=== PATIENT | male | born 1975 | race African-American/Black ===

== ENCOUNTER 2025-03-28 13:16 | Emergency (ER) | payer MEDICAID ==
[~2025-03-28] VITALS: Ht 180.3 cm; Wt 87.0 kg
[2025-03-28 13:19] VITALS: BP 150/87; PULSE 100; RESP 16; TEMP 36.9; O2SAT 99
[2025-03-28] MEDS: DICYCLOMINE HCL 10MG CAPSULE PO SCH (13:52)
[2025-03-28] MEDS: MAGNESIUM/ALUMINUM HYDROXIDE/SIMETHICONE 30ML UDC PO STA (13:52)
[2025-03-28] MEDS: FAMOTIDINE 20MG TABLET PO ONE (13:52)
[2025-03-28] MEDS: ONDANSETRON 4MG ODT PO STA (13:53)
[2025-03-28] MEDS: DICYCLOMINE 10 MG/5 ML ORAL SYR PO STA (13:54)
[2025-03-28 14:12] LABS: BASOPHILS % 0.7 % (0.0-2.0); EOSINOPHILS % 0.1 % (0.0-5.0); HEMATOCRIT. 31.2 % (42.0-52.0); HEMOGLOBIN. 10.5 g/dL (14.0-18.0); LYMPHOCYTES % 26.4 % (20.0-50.0); MEAN CORPUSCULAR HEMOGLOBIN 31.1 pg (28.0-32.0); MEAN CORPUSCULAR HGB CONC 33.7 g/dL (31.0-37.0); MEAN CORPUSCULAR VOLUME 92.4 fL (80.0-94.0); MEAN PLATELET VOLUME 8.1 fl (7.4-10.4); NEUTROPHILS % 67.8 % (40.0-76.0); PLATELET 124 x1000/uL (130-400); RED BLOOD CELL COUNT 3.38 mill/uL (4.7-6.1); RED CELL DISTRIBUTION WIDTH 16.8 % (11.6-14.6); WHITE BLOOD COUNT 4.8 x1000/uL (4.5-11.0)
[2025-03-28 14:15] LABS: CHLORIDE 108 mEq/L (98-107); POTASSIUM 2.9 mEq/L (3.5-5.1); SODIUM 144 mEq/L (136-145)
[2025-03-28 14:16] LABS: CALCIUM 9.3 mg/dL (8.7-10.4); CARBON DIOXIDE 26 mEq/L (21-32)
[2025-03-28 14:21] LABS: CREATININE 0.8 mg/dL (0.6-1.3); GLUCOSE 108 mg/dL (70-105)
[2025-03-28 14:22] LABS: ETHANOL BLOOD 95 mg/dL (<10); UREA NITROGEN BLOOD 9 mg/dL (9-23)
[2025-03-28 14:23] LABS: ALANINE AMINOTRANSFERASE 55 IU/L (10-49); ALBUMIN 4.8 g/dL (3.2-4.8); ASPARTATE AMINOTRANSFERASE 105 IU/L (<34); BILIRUBIN DIRECT 0.1 mg/dL (<=3.0)
[2025-03-28 14:24] LABS: BILIRUBIN TOTAL 0.5 mg/dL (0.1-1.0); PROTEIN TOTAL 7.2 g/dL (6.0-8.3)
[2025-03-28] MEDS ORDERED: FAMO-135 MT (14:42)
[2025-03-28] MEDS: POTASSIUM CHLORIDE 20MEQ TABLET SR PO ONE (14:54)
== END 2025-03-28 15:52 | disposition home or self-care (01) ==
LOC: ER 13:16
DX: K29.20 Alcoholic gastritis without bleeding (principal); E87.6 Hypokalemia; Z79.899 Other long term (current) drug therapy
CPT/HCPCS: 80076; 80048; 80320; 83690; 85025; 36415; 99284; Q0162; G0480

== ENCOUNTER 2025-03-28 15:42 | Inpatient (IN) | payer OTHER ==
[~2025-03-28] VITALS: Ht 180.3 cm; Wt 88.1 kg
[~2025-03-28 15:42] MED LIST: FAMO-135 MT
[2025-03-28] MEDS ORDERED: LORAZEPAM 2MG/ML INJ IV ONE (18:00)
[2025-03-28] MEDS: SODIUM CHLORIDE 0.9% 1,000 ML IV ONE ×2 (18:02→19:06)
[2025-03-28] MEDS: LORAZEPAM 2MG/ML UD SYRINGE IV ONE (18:02)
[2025-03-28 18:26] LABS: BASOPHILS % 0.8 % (0.0-2.0); HEMATOCRIT. 32.4 % (42.0-52.0); HEMOGLOBIN. 10.1 g/dL (14.0-18.0); LYMPHOCYTES % 27.2 % (20.0-50.0); MEAN CORPUSCULAR HEMOGLOBIN 30.6 pg (28.0-32.0); MEAN CORPUSCULAR VOLUME 98.8 fL (80.0-94.0); MEAN PLATELET VOLUME 8.2 fl (7.4-10.4); MONOCYTES % 4.6 % (2.0-8.0); NEUTROPHILS % 67.4 % (40.0-76.0); PLATELET 130 x1000/uL (130-400); RED BLOOD CELL COUNT 3.28 mill/uL (4.7-6.1); RED CELL DISTRIBUTION WIDTH 17.6 % (11.6-14.6); WHITE BLOOD COUNT 7.2 x1000/uL (4.5-11.0)
[2025-03-28 18:33] LABS: CHLORIDE 103 mEq/L (98-107); POTASSIUM 3.2 mEq/L (3.5-5.1); SODIUM 145 mEq/L (136-145)
[2025-03-28 18:34] LABS: CALCIUM 8.9 mg/dL (8.7-10.4)
[2025-03-28 18:38] LABS: CREATININE 0.9 mg/dL (0.6-1.3)
[2025-03-28 18:39] LABS: ETHANOL BLOOD 20 mg/dL (<10); GLUCOSE 133 mg/dL (70-105); PROTHROMBIN TIME 10.6 sec (9.6-11.0); UREA NITROGEN BLOOD 10 mg/dL (9-23)
[2025-03-28 18:41] LABS: ALANINE AMINOTRANSFERASE 53 IU/L (10-49); ALBUMIN 4.7 g/dL (3.2-4.8); ASPARTATE AMINOTRANSFERASE 97 IU/L (<34); BILIRUBIN DIRECT 0.1 mg/dL (<=3.0); BILIRUBIN TOTAL 0.4 mg/dL (0.1-1.0); PHOSPHORUS 4.5 mg/dL (2.5-4.9); PROTEIN TOTAL 7.1 g/dL (6.0-8.3)
[2025-03-28 18:58] LABS: CARBON DIOXIDE < 10 mEq/L (21-32)
[2025-03-28 20:00] VITALS: BP 155/83; PULSE 92; RESP 20; TEMP 36.9; O2SAT 100
[2025-03-28] MEDS: FOLIC ACID 1 MG, THIAMINE HCL 100 MG, MVI, ADULT NO.1 10 ML in DEXTROSE 5% WATER 1,000 ML IV ONE (20:24)
[2025-03-28 21:21] VITALS: BP_SYST 155; BP_DIAS 83; BP_DIAS 85; PULSE 91; RESP 18; TEMP 36.9; TEMP 37; O2SAT 100
[2025-03-29] VITALS: BP 167/92; PULSE 100; RESP 20; TEMP 36.8; O2SAT 99
[2025-03-29 04:00] VITALS: BP 145/98; PULSE 20; RESP 20; TEMP 36.8; O2SAT 100
[2025-03-29] MEDS: ONDANSETRON HCL 4MG/2ML INJ IV PRN (05:08)
[2025-03-29] MEDS: HYDROCODONE/ACETAMINOPHEN 10/325MG TABLET PO PRN (05:10)
[2025-03-29] MEDS ORDERED: NALOXONE HCL 0.4MG/ML VIAL IV PRN (05:15)
[2025-03-29 08:00] VITALS: BP 143/98; PULSE 76; RESP 19; TEMP 36.6; O2SAT 98
[2025-03-29] MEDS: AMLODIPINE 10MG TABLET PO SCH (08:17)
[2025-03-29] MEDS: ASPIRIN 81MG TABLET PO SCH (08:17)
[2025-03-29] MEDS: PANTOPRAZOLE SODIUM 40 MG/VIAL IV SCH (08:18)
[2025-03-29 10:17] LABS: CLARITY URINE CLEAR (CLEAR); COLOR URINE YELLOW (YELLOW); GLUCOSE URINE NEGATIVE (NEGATIVE); KETONES URINE 1+ (NEGATIVE); LEUKOCYTE ESTERASE URINE NEGATIVE (NEGATIVE); NITRITE URINE NEGATIVE (NEGATIVE); OCCULT BLOOD URINE NEGATIVE (NEGATIVE); PH URINE 7.5 (4.5-8.0); PROTEIN URINE NEGATIVE (NEGATIVE); SPECIFIC GRAVITY URINE 1.014 (1.005-1.030); UROBILINOGEN URINE 0.2 E.U./dL (0.2-1.0)
[2025-03-29 11:38] LABS: *AMPHETAMINES SCREEN URINE NEGATIVE (NEGATIVE); *BARBITURATES SCREEN URINE NEGATIVE (NEGATIVE); *BENZODIAZEPINES SCREEN URINE NEGATIVE (NEGATIVE); *COCAINE SCREEN URINE NEGATIVE (NEGATIVE); CANNABINOID URINE SCREEN NEGATIVE (NEGATIVE); ECSTASY MDMA SCREEN URINE NEGATIVE (NEGATIVE); METHADONE URINE SCREEN NEGATIVE (NEGATIVE); OPIATES URINE SCREEN PRESUMPTIVE POSITIVE (NEGATIVE); PHENCYCLIDINE URINE SCREEN NEGATIVE (NEGATIVE)
[2025-03-29 12:20] VITALS: BP 148/88; PULSE 73; RESP 19; TEMP 36.2; O2SAT 100
[2025-03-29] MEDS: POTASSIUM CHLORIDE 20MEQ TABLET SR PO SCH ×2 (14:31→18:01)
[2025-03-29] MEDS: DEXT 5%/0.45% NACL 1000ML 1,000 ML IV SCH (14:32)
[2025-03-29 15:57] VITALS: BP 149/90; PULSE 63; RESP 19; TEMP 36.3; O2SAT 99
[2025-03-29 17:04] LABS: CHLORIDE 99 mEq/L (98-107); SODIUM 139 mEq/L (136-145)
[2025-03-29 17:05] LABS: CARBON DIOXIDE 28 mEq/L (21-32)
[2025-03-29 17:11] LABS: CREATININE 0.7 mg/dL (0.6-1.3); GLUCOSE 91 mg/dL (70-105); UREA NITROGEN BLOOD 5 mg/dL (9-23)
[2025-03-29 17:46] LABS: POTASSIUM 2.7 mEq/L (3.5-5.1)
[2025-03-29] MEDS ORDERED: LORAZEPAM 2MG/ML UD SYRINGE IV PRN (19:15)
[2025-03-29 20:00] VITALS: BP 157/93; PULSE 70; RESP 20; TEMP 36.2; O2SAT 100
[2025-03-29] MEDS: METOCLOPRAMIDE HCL 10MG/2ML VIAL IV PRN (20:29)
[2025-03-29] MEDS: MAGNESIUM 2 G PREMIX 50 ML IV SCH (23:50)
[2025-03-30] VITALS: BP 130/76; PULSE 87; RESP 20; TEMP 36.5; O2SAT 97
[2025-03-30 04:00] VITALS: BP 125/86; PULSE 80; RESP 20; TEMP 36.3; O2SAT 97
[2025-03-30 07:08] LABS: CARBON DIOXIDE 25 mEq/L (21-32); CHLORIDE 102 mEq/L (98-107); SODIUM 139 mEq/L (136-145)
[2025-03-30 07:10] LABS: CALCIUM 8.9 mg/dL (8.7-10.4)
[2025-03-30 07:13] LABS: CREATININE 0.7 mg/dL (0.6-1.3)
[2025-03-30 07:14] LABS: GLUCOSE 98 mg/dL (70-105); UREA NITROGEN BLOOD < 5 mg/dL (9-23)
[2025-03-30 07:49] VITALS: BP 128/80; PULSE 82; RESP 18; TEMP 36.7; O2SAT 100
[2025-03-30] MEDS: POTASSIUM CHLORIDE 20MEQ/PACKET PO SCH (09:20)
[2025-03-30 11:34] VITALS: BP 120/77; PULSE 73; RESP 18; TEMP 37.1; O2SAT 100
[2025-03-30 15:39] VITALS: BP 112/67; PULSE 86; RESP 18; TEMP 36.8; O2SAT 100
[2025-03-30 20:00] VITALS: BP 118/68; PULSE 85; RESP 20; TEMP 36.8; O2SAT 98
[2025-03-31] VITALS: BP 133/85; PULSE 83; RESP 20; TEMP 36.7; O2SAT 100
[2025-03-31 04:00] VITALS: BP 134/69; PULSE 78; RESP 20; TEMP 36.6; O2SAT 100
[2025-03-31 07:31] VITALS: BP 134/69; PULSE 78; TEMP 96.6; O2SAT 100
[2025-03-31 08:00] VITALS: BP 118/69; PULSE 74; RESP 20; TEMP 36.4; O2SAT 98
== END 2025-03-31 12:03 | disposition home or self-care (01) | DRG 53 ==
LOC: ER 15:42 → EDBEDREQ 20:11 → EDBEDREQTM 20:11 → ENRESERV 20:41 → 7WST 22:40
PROVIDERS: ADMIT Internal Medicine; ATTEND Internal Medicine
DX: G40.89 Other seizures (principal); D64.9 Anemia, unspecified; E87.6 Hypokalemia; F10.139 Alcohol abuse with withdrawal, unspecified; Y90.9 Presence of alcohol in blood, level not specified; I10 Essential (primary) hypertension; Z88.2 Allergy status to sulfonamides
CPT/HCPCS: 36415; 71045; 74018; 80048; 80076; 80305; 80320; 81003; 82962; 83735; 84100; 85025; 96361; 96365; 96375; 99291; J2060; J2405; J2470; J2765; J3411; J3475; J3490; J7030; J7070; G0480

== ENCOUNTER 2025-06-12 10:52 | Inpatient (IN) | payer OTHER ==
[~2025-06-12] VITALS: Ht 182.9 cm; Wt 79.8 kg
[2025-06-12 10:55] VITALS: O2SAT 97
[2025-06-12 11:38] LABS: BASOPHILS % 0.6 % (0.0-2.0); EOSINOPHILS % 0.2 % (0.0-5.0); HEMATOCRIT. 35.6 % (42.0-52.0); HEMOGLOBIN. 11.6 g/dL (14.0-18.0); LYMPHOCYTES % 24.2 % (20.0-50.0); MEAN PLATELET VOLUME 8.3 fl (7.4-10.4); MONOCYTES % 4.1 % (2.0-8.0); NEUTROPHILS % 70.9 % (40.0-76.0); PLATELET 192 x1000/uL (130-400); RED BLOOD CELL COUNT 3.80 mill/uL (4.7-6.1); RED CELL DISTRIBUTION WIDTH 15.7 % (11.6-14.6)
[2025-06-12] MEDS: DIAZEPAM 5 MG/ML 2ML SYR IV ONE (11:42)
[2025-06-12] MEDS: ONDANSETRON HCL 4MG/2ML INJ IV ONE (11:42)
[2025-06-12] MEDS: LACTATED RINGERS 1,000 ML IV SCH ×2 (11:43→15:41)
[2025-06-12] MEDS: LEVETIRACETAM 500MG PREMIX 100 ML IV ONE ×2 (11:43→11:55)
[2025-06-12 11:56] LABS: CREATININE 1.0 mg/dL (0.6-1.3); UREA NITROGEN BLOOD 9 mg/dL (9-23)
[2025-06-12 11:58] LABS: ASPARTATE AMINOTRANSFERASE 299 IU/L (<34); BILIRUBIN TOTAL 0.5 mg/dL (0.1-1.0); PROTEIN TOTAL 7.1 g/dL (6.0-8.3)
[2025-06-12] MEDS: TETANUS, DIPHTHERIA, PERTUSSIS VAC/PF 0.5ML (>10YR OLD) IM ONE (13:02)
[2025-06-12] MEDS ORDERED: MAGNESIUM/ALUMINUM HYDROXIDE/SIMETHICONE 30ML UDC PO PRN (15:15)
[2025-06-12] MEDS ORDERED: CLONIDINE 0.1MG TABLET PO PRN (15:15)
[2025-06-12] MEDS ORDERED: LORAZEPAM 1MG TABLET PO PRN (15:15)
[2025-06-12] MEDS ORDERED: IPRATROPIUM/ALBUTEROL 0.5-3(2.5)MG/3ML NEB HHN PRN (15:15)
[2025-06-12] MEDS ORDERED: GUAIFENESIN 200MG/10ML SUGAR FREE UDC PO PRN (15:15)
[2025-06-12] MEDS ORDERED: ACETAMINOPHEN 325MG TABLET PO PRN (15:15)
[2025-06-12] MEDS ORDERED: ONDANSETRON HCL 4MG/2ML INJ IV PRN (15:15)
[2025-06-12] MEDS ORDERED: DOCUSATE SODIUM 100MG CAPSULE PO PRN (15:15)
[2025-06-12] MEDS ORDERED: LORAZEPAM 2MG/ML UD SYRINGE IV PRN (15:15)
[2025-06-12] MEDS: CLONIDINE 0.1MG TABLET PO NR (15:19)
[2025-06-12] MEDS: CHLORDIAZEPOXIDE 25MG CAPSULE PO SCH (15:41)
[2025-06-12] MEDS: POTASSIUM CHLORIDE 20MEQ TABLET SR PO SCH (15:41)
[2025-06-12] MEDS: PANTOPRAZOLE SODIUM 40 MG/VIAL IV SCH (16:06)
[2025-06-12 16:12] LABS: PHOSPHORUS 3.0 mg/dL (2.5-4.9)
[2025-06-12] MEDS: MVI, ADULT NO.1 10 ML, FOLIC ACID 1 MG, THIAMINE HCL 100 MG in SODIUM CHLORIDE 0.9% 1,0... IV SCH (17:45)
[2025-06-12 18:13] LABS: INR 1.0
[2025-06-12] MEDS: ENOXAPARIN 40MG/0.4ML SYR SUBCUT SCH (20:32)
[2025-06-12 23:03] VITALS: BP 150/108; PULSE 98; RESP 13; TEMP 37.1408
[2025-06-13] VITALS (10 sets, daily range): BP systolic 114–145; BP diastolic 78–99; PULSE 71–99; RESP 0–15; TEMP 36.4–37.3; O2SAT 95–100
[2025-06-13] MEDS: ACETAMINOPHEN 325MG TABLET PO PRN (05:21)
[2025-06-13 05:30] LABS: CREATININE 0.9 mg/dL (0.6-1.3)
[2025-06-13 05:31] LABS: LDL CHOLESTEROL 90 mg/dL (5-100); TRIGLYCERIDE 64 mg/dL (0-150); UREA NITROGEN BLOOD 9 mg/dL (9-23)
[2025-06-13 05:32] LABS: T4 FREE 0.88 ng/dL (0.89-1.76)
[2025-06-13 05:44] LABS: BASOPHILS % 0.4 % (0.0-2.0); EOSINOPHILS % 0.8 % (0.0-5.0); HEMATOCRIT. 33.5 % (42.0-52.0); HEMOGLOBIN. 11.1 g/dL (14.0-18.0); LYMPHOCYTES % 26.1 % (20.0-50.0); MEAN PLATELET VOLUME 8.7 fl (7.4-10.4); MONOCYTES % 5.6 % (2.0-8.0); NEUTROPHILS % 67.1 % (40.0-76.0); PLATELET 157 x1000/uL (130-400); RED BLOOD CELL COUNT 3.68 mill/uL (4.7-6.1); RED CELL DISTRIBUTION WIDTH 15.8 % (11.6-14.6)
[2025-06-13] MEDS: THIAMINE HCL 100MG TABLET PO SCH (08:50)
[2025-06-13] MEDS: FOLIC ACID 1MG TABLET PO SCH (08:50)
[2025-06-13] MEDS: AMLODIPINE 5MG TABLET PO SCH (08:53)
[2025-06-13] MEDS: SODIUM CHLORIDE 0.9% 1,000 ML IV SCH (10:05)
[2025-06-13 12:22] LABS: *AMPHETAMINES SCREEN URINE NEGATIVE (NEGATIVE); *BARBITURATES SCREEN URINE NEGATIVE (NEGATIVE); *BENZODIAZEPINES SCREEN URINE NEGATIVE (NEGATIVE); *COCAINE SCREEN URINE NEGATIVE (NEGATIVE); CANNABINOID URINE SCREEN NEGATIVE (NEGATIVE); ECSTASY MDMA SCREEN URINE NEGATIVE (NEGATIVE); METHADONE URINE SCREEN NEGATIVE (NEGATIVE); OPIATES URINE SCREEN NEGATIVE (NEGATIVE); PHENCYCLIDINE URINE SCREEN NEGATIVE (NEGATIVE)
[2025-06-14] VITALS: BP 129/87; PULSE 74; RESP 16; TEMP 37.2; O2SAT 99
[2025-06-14 04:00] VITALS: BP 132/88; PULSE 67; RESP 20; TEMP 36.3; O2SAT 99
[2025-06-14] MEDS: AMLODIPINE 10MG TABLET PO SCH (08:33)
[2025-06-14 12:00] VITALS: BP 121/71; PULSE 83; RESP 19; TEMP 36.6; O2SAT 99
[2025-06-14 16:00] VITALS: BP 133/73; PULSE 97; RESP 18; TEMP 36.6; O2SAT 99
[2025-06-14] MEDS ORDERED: AMLO10TA80 PO (17:11)
[2025-06-14] MEDS ORDERED: KEPP500 MT (17:11)
[2025-06-14 17:44] VITALS: BP 133/73; PULSE 92; RESP 18; TEMP 97.6
== END 2025-06-14 18:25 | disposition home or self-care (01) | DRG 53 ==
LOC: ER 10:52 → EDBEDREQ 12:51 → EDBEDREQTM 12:51 → ENRESERV 21:39 → 5EST 22:37 → 6EST 06-14 05:47
PROVIDERS: ADMIT Hospitalist; ATTEND Hospitalist
PROC: 4A10X4Z Monitoring of Central Nervous Electrical Activity, External Approach (ICD-10-PCS; principal; 2025-06-14)
DX: G40.89 Other seizures (principal); E87.20 Acidosis, unspecified; S09.8XXA Other specified injuries of head, initial encounter; F10.239 Alcohol dependence with withdrawal, unspecified; E87.6 Hypokalemia; K20.80 Other esophagitis without bleeding; I10 Essential (primary) hypertension; X58.XXXA Exposure to other specified factors, initial encounter; Y93.89 Activity, other specified; Y92.89 Other specified places as the place of occurrence of the external cause; Y99.8 Other external cause status; Z79.899 Other long term (current) drug therapy
CPT/HCPCS: 36415; 80048; 80053; 80061; 80305; 82550; 83036; 83735; 84100; 84439; 84443; 85025; 90715; 95816; 99291; J1650; J1953; J2405; J2470; J3411; J3490; J7030